=== PATIENT | male | born 1955 | race Caucasian/White ===

== ENCOUNTER 2017-01-13 13:42 | Emergency (ER) | payer OTHER ==
[2017-01-13] MEDS ORDERED: Tetan/Diph/Pertus SYR(Tdap)* 0.5 ML SYR(BOOSTRIX) use SYR IM ONE (13:52)
[2017-01-13] MEDS ORDERED: HYDROcodone/ACETAMIN 5-325 MG* 1 TAB PO ONE (14:09)
--- NOTE | 2017-01-13 14:30 | RAD ---
INDICATION: Left hand lacerations, deep. TECHNIQUE: 2 views of the left hand were obtained. FINDINGS: The exam is significantly limited. There is a prominent amount of gauze material which projects over the fingers in the region of the patient's injury. There is soft tissue swelling in the second through fifth fingers There appear to be soft tissue defects present. No fracture is seen. Incidental note is made of a small metallic density which projects lateral to the radiostyloid process. IMPRESSION: SIGNIFICANTLY LIMITED STUDY, NO EVIDENCE FOR FRACTURE, CONSIDER REPEAT IMAGING WITH THE PATIENT IS CLINICALLY ABLE.
[2017-01-13] MEDS ORDERED: LORazepam TAB(*) 1 MG PO ONE (14:42)
--- NOTE | 2017-01-13 15:16 | RAD ---
Indication: Left hand pain. 4 views of left hand demonstrates no fracture. No other bone or joint abnormalities identified. Soft tissue defect is noted in the index finger and third digit. No definite bony injury or fragments are noted. IMPRESSION: THERE APPEARS TO BE A DEEP SOFT TISSUE INJURY OF THE SECOND DIGIT AND THIRD DIGIT HOWEVER NO FRACTURE OR BONY FRAGMENTS ARE NOTED.
--- NOTE | 2017-01-13 15:28 | ED ---
Skin Complaint - HPI Summary HPI Summary: Patient presents to the ED after a skill saw accident with avulsions and lacerations to the left hand over the 2nd-4th fingers. Denies any pain. Moderate amount of blood loss. Denies numbness, tingling. He is unable to bend at the DIP or PIP joint of the fourth finger. Macerated skin to the 2nd- 4th fingers. Slightly anxious. Denies nay other symptoms or pain. Unable to assess cap refill. Pulses in wrist intact +2 bilaterally. - History of Current Complaint Chief Complaint: EDLacSutureRecheck Time Seen by Provider: 01/13/17 13:52 Stated Complaint: LT HAND FINGERS LAC/SAW Hx Obtained From: Patient Onset/Duration: Started Minutes Ago Skin Exposure Onset/Duration: Minutes Ago Timing: Constant Onset Severity: Moderate Current Severity: Moderate Pain Intensity: 7 Pain Scale Used: 0-10 Numeric Skin Location: Hand Aggravating Symptom(s): Touch Alleviating Symptom(s): Nothing Associated Signs & Symptoms: Negative Related History: Trauma - Allergy/Home Medications Allergies/Adverse Reactions: Allergies Allergy/AdvReac Type Severity Reaction Status Date / Time No Known Allergies Allergy Verified 01/13/17 13:49 PMH/Surg Hx/FS Hx/Imm Hx Previously Healthy: Yes - Immunization History Hx Pertussis Vaccination: No Immunizations Up to Date: Unable to Obtain/Confirm Infectious Disease History: No Infectious Disease History: Denies: Traveled Outside the [place] in Last 30 Days - Social History Occupation: Employed Full-time Lives: With Family Alcohol Use: None Hx Substance Use: No Substance Use Type: Reports: None Hx Tobacco Use: No Review of Systems Constitutional: Negative Eyes: Negative ENT: Negative Respiratory: Negative Gastrointestinal: Negative Genitourinary: Negative Positive: no symptoms reported, see HPI Musculoskeletal: Negative Positive: Other - macerated left 2nd, 3rd and 4th fingers Neurological: Negative All Other Systems Reviewed And Are Negative: Yes Physical Exam Triage Information Reviewed: Yes Vital Signs On Initial Exam: Initial Vitals Temp Pulse Resp BP Pulse Ox 98.0 F 74 20 198/93 98 01/13/17 13:47 01/13/17 13:47 01/13/17 13:47 01/13/17 13:47 01/13/17 13:47 Vital Signs Reviewed: Yes Appearance: Positive: Well-Appearing, Well-Nourished Skin: Positive: Warm, Skin Color Reflects Adequate Perfusion Head/Face: Positive: Normal Head/Face Inspection Eyes: Positive: EOMI, KRISTIN, Conjunctiva Clear Neck: Positive: Supple, No Lymphadenopathy Respiratory/Lung Sounds: Positive: Clear to Auscultation, Breath Sounds Present Cardiovascular: Positive: Normal, RRR, Pulses are Symmetrical in both Upper and Lower Extremities Musculoskeletal: Positive: Normal, Strength/ROM Intact Neurological: Positive: Sensory/Motor Intact, Alert, Oriented to Person Place, Time, Speech Normal Psychiatric: Positive: Normal AVPU Assessment: Alert Diagnostics - Vital Signs Vital Signs Temp Pulse Resp BP Pulse Ox 01/13/17 14:49 18 01/13/17 13:47 98.0 F 74 20 198/93 98 - Laboratory Lab Statement: Any lab studies that have been ordered have been reviewed, and results considered in the medical decision making process. Course/Dx - Course Course Of Treatment: Patient presents with macerations to the 2nd, 3rd and 4th fingers. Moderate amount of blood loss. Unable to bend the 3rd and 4th finger at the DIP and PIP joints. Called ortho. Denisse from ortho to see patient and ortho (Dr. Shea) agrees to see patient tomorrow in office. Bedside washout. Timeout obtained. Digital block with 2nd-4th fingers and washout with scrub brush. Thorough including jet irrigation. Antibiotic ointment applied. Telfa dressing applied and wrapped with gauze. Keflex prescribed. 1000mg keflex in ED. He will call tomorrow for follow up. - Diagnoses Provider Diagnoses: Laceration Discharge - Discharge Plan Condition: Stable Disposition: HOME Prescriptions: Cephalexin CAP* [Keflex CAP*] 500 mg PO QID #28 cap MDD 4 Referrals: No Primary Care Phys,NOPCP [Primary Care Provider] - Arthur Shea MD [Medical Doctor] - Additional Instructions: Follow up with Dr. Shea tomorrow! Please call for appt. I have given you information Keflex tonight 500mg before bed Tomorrow morning 500mg and continue (4 times daily) Leave bandages applied until follow up tomorrow Images - Images Hands: 1 - macerated left 2nd, 3rd and 4th fingers
[2017-01-13] MEDS ORDERED: Cephalexin CAP* 500 MG PO ONE (16:31)
[2017-01-13] MEDS ORDERED: Lidocaine 1%* 5 ML VIAL INJ ONE ×2 (16:41→16:59)
[2017-01-13 18:05] VITALS: BP 175/79
--- NOTE | 2017-01-13 22:45 | CONS ---
CONSULTATION REPORT: DATE OF CONSULT: 01/13/17 SUPERVISING PHYSICIAN: Dr. Shea (dictated by ASHA Baig) CHIEF COMPLAINT: Left hand laceration. HISTORY OF PRESENT ILLNESS: Mr. 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 today. He immediately came to the emergency room. X-rays were taken which did not show any fractures. He is here for some moderate amount of blood loss and has significant pain in the 2nd, 3rd, and 4th digits; however, he is able to bend the DIP and PIP joints of all the fingers. He denies any numbness or tingling. He denies any fevers, shakes, or chills. PAST MEDICAL HISTORY: Denies. PAST SURGICAL HISTORY: Appendectomy. CURRENT MEDICATIONS: None. ALLERGIES: AMOXICILLIN causing a rash. FAMILY HISTORY: Denies. SOCIAL HISTORY: This is a 61-year-old gentleman. Lives with his . He does not smoke tobacco. He occasionally smokes marijuana and occasional alcohol. REVIEW OF SYSTEMS: A complete 14-point review of systems was reviewed with the patient, was all negative or noncontributory. PHYSICAL EXAMINATION: General: He is well developed, well nourished, in no acute distress. He is alert and oriented x3, pleasant mood and appropriate affect. HEENT: Normocephalic, atraumatic. Neck: Supple. No palpable lymph nodes. Cardio: Regular rate and rhythm. Pulmonary: The lungs are clear to auscultation bilaterally. The abdomen is soft, nontender, and nondistended. Musculoskeletal: Left upper extremity, there is a laceration to the DIP joint of the 2nd, 3rd, and 4th fingers. The 3rd finger DIP joint is lacerated with significant amount of tissue loss. He has intact sensation over the fingers. He is able to flex at the DIP joints. He has 2+ distal radius pulses. Good capillary refill. ASSESSMENT AND PLAN: Mr. Thomas is a 61-year-old gentleman, who suffered lacerations to the DIP joints of the 2nd, 3rd, and 4th fingers. There is significant tissue loss over the DIP joint of the 3rd finger; however, he is able to flex the DIP and PIP joints of all the fingers and has intact sensation. X-rays were negative for fracture. This patient was discussed with Dr. Shea and he is agreed that a bedside I and D in the ER with Xeroform bulky dressing will be sufficient. He is also recommended Keflex and he would like to see him in his clinic tomorrow for a followup visit. ASHA BAIG [id number]/[facility] #: [id number] DELISA
== END 2017-01-13 18:09 | disposition home or self-care (01) ==
LOC: ED 13:42
DX: S61.211A Laceration without foreign body of left index finger without damage to nail, initial encounter (principal); S61.213A Laceration without foreign body of left middle finger without damage to nail, initial encounter; S61.215A Laceration without foreign body of left ring finger without damage to nail, initial encounter; W27.8XXA Contact with other nonpowered hand tool, initial encounter; Y93.89 Activity, other specified; Y92.89 Other specified places as the place of occurrence of the external cause
CPT/HCPCS: 90471; 90715; 99283; A9270-GY

== ENCOUNTER 2017-01-19 10:56 | Day surgery (SDC) | payer OTHER ==
[~2017-01-19 10:56] MED LIST: Buffered Lidocaine 0.9% SYRIN* 5 ML/SYR SYRINGE INTRADERM ONE; Famotidine IV* 10 MG/ML 2 ML (20 mg) IV ONE; Morphine INJ* 2 MG/ML 1 ML CARPUJECT IV PRN; Ondansetron INJ* 2 MG/ML VIAL IV PRN; PROCHLORPERAZINE INJ 5 MG/ML 2 ML VIAL IV PRN; Scopolamine 1.5 mg* PATCH TRANSDERM PRN; fentaNYL* 50 MCG/ML 2 ML VIAL (100 MCG VIAL) IV PRN; oxyCODONE/Acetamin 5/325 MG* TAB PO PRN
[2017-01-19] MEDS ORDERED: Famotidine IV* 10 MG/ML 2 ML (20 mg) ONE (11:31)
[2017-01-19] MEDS ORDERED: Clindamycin 900 MG IVPREMIX(* 900 MG/50 ML SDV IV ONE (11:31)
[2017-01-19] MEDS ORDERED: fentaNYL* 50 MCG/ML 2 ML VIAL (100 MCG VIAL) ONE ×2 (14:15→20:55)
[2017-01-19] MEDS ORDERED: KETAMINE HCL* 50 MG/ML 10 ML VIAL ONE (14:16)
[2017-01-19] MEDS ORDERED: Midazolam* 1 MG/ML 5 ML VIAL (5 MG) ONE (14:16)
[2017-01-19] MEDS ORDERED: Lidocaine 1% INJ* 10 MG/ML 30 ML SDV ONE (14:49)
[2017-01-19] MEDS ORDERED: Bupivacaine 0.25% SDV* 30 ML ONE (14:49)
[2017-01-19] MEDS ORDERED: Lidocaine 2% PF * 5 ML VIAL ONE (15:32)
[2017-01-19] MEDS ORDERED: Propofol* 10 MG/ML 20 ML BTL IV PUSH ONE (15:32)
[2017-01-19] MEDS ORDERED: Ondansetron INJ* 2 MG/ML VIAL ONE (15:32)
[2017-01-19] MEDS ORDERED: Dexamethasone IV* 4 MG/ML 1 ML (4 MG) ONE (15:32)
[2017-01-19] MEDS ORDERED: Morphine INJ* 10 MG/ML 1 ML CARPUJECT ONE (16:56)
[2017-01-19] MEDS ORDERED: oxyCODONE/Acetamin 5/325 MG* TAB ONE (21:59)
[2017-01-19 22:50] VITALS: BP 154/77
--- NOTE | 2017-01-20 18:21 | OP ---
OPERATIVE REPORT: DATE OF OPERATION: 01/19/17 - [facility] DATE OF : 57 SURGEON: Arthur Shea MD ASSISTANTS: 1. ASHA Cullen 2. AHSA Can 3. ASHA Bhat An speech and language assistant was needed for the entirety of the procedure to aid in positioning of the arm and retraction. ANESTHESIOLOGIST: Francisco Black MD ANESTHESIA: General. PRE-OP DIAGNOSIS: Left index, middle, and ring finger injuries due to power saw. POST-OP DIAGNOSES: 1. Left index finger flexor digitorum profundus zone 1 laceration. 2. Left index finger radial digital nerve laceration. 3. Left index finger ulnar digital nerve laceration. 4. Traumatic laceration, left volar index finger measuring 2 cm. 5. Left middle finger 50% flexor digitorum profundus partial laceration at zone 1. 6. Left middle finger ulnar digital neurovascular bundle laceration. 7. Left large traumatic wound with soft tissue loss, left ulnar and volar middle finger requiring flap closure. 8. Left ring finger full-thickness volar finger tip soft tissue loss. OPERATIVE PROCEDURE: 1. Exploration of penetrating wounds, left index, middle, and ring fingers. 2. Repair of left flexor digitorum profundus tendon. 3. Repair of left index finger radial digital nerve with primary repair. 4. Repair of left index ulnar digital nerve with conduit. 5. Closure of traumatic wound, left index finger, measuring 2 cm with primary closure. 6. Repair of left middle finger flexor digitorum profundus partial laceration. 7. Repair of left middle finger ulnar digital nerve with posterior interosseous nerve autograft. 8. Closure of traumatic wound left middle finger with rotational flap. 9. Irrigation and debridement of left ring finger tip wound with 3 mm shortening of the distal phalanx. 10. Closure of traumatic wound, left ring finger tip with V-Y Atasoy advancement flap. 11. Use of operating room microscope. INDICATIONS: Norman had a [place] injury little less than a week ago. He has been on antibiotics placed on in the office. We talked about his options, he wanted to proceed with exploration and repair and closure of the wounds if needed. He certainly understands the risks of stiffness and failure of the nerve and/or tendon repairs. ESTIMATED BLOOD LOSS: 20 mL. COMPLICATIONS: None. FINDINGS: Please see the procedures performed listed above. DESCRIPTION OF PROCEDURE: Norman was seen in the preoperative holding area. He was taken back to the operating room. The arm was prepped and draped in the usual fashion. Time-out was performed. I begun by exploring the left index finger wound. The laceration was bluntly spread open with tenotomy scissors. It was obvious that the FDP was lacerated off its insertion on to the distal phalanx. I went ahead and brought the skin incision back in Logan-type fashion over the volar aspect of the finger and found the FDP tendon, which was palpable right at the decussation of the FDS. I made a transverse incision through the A3 hattie and delivered the end of the FDP out into the wound. A 3-0 Prolene pull-out suture was placed. I went ahead and used a 0 Prolene suture to suture shuttle the 2 tails of the 3-0 Prolene suture into the distal aspect of the sheath. The FDP tendon was delivered inside the sheath out distally to where it inserts. I went ahead and used 2 Gonzalez needles to pull one tail of the pull-out suture around the radial and the other tail around the ulnar side of the distal phalanx. The sutures were brought out through the sterile matrix. The sutures were tied off over a button that I fabricated out of the Prolene suture wrapper. I then augmented the tendon repair with 3 figure-of-8 3-0 Ethibond sutures as there was a bit of distal tendon stump still remaining and so I augmented repair with Ethibond sutures. I then identified the radial and ulnar digital nerves. Actually, the digital nerves were both completely cut but the soft tissue shy of both digital arteries and so as that was why the finger tip was so well perfused. After I had identified both of the digital nerves, I went ahead and moved on to the middle finger. The left middle finger wound was explored. There was a 1-cm volar ulnar soft tissue loss just proximal and extending to the level of the DIP flexion crease. This went all the way down to bone, 50% of the FDP tendon was lacerated obliquely and was a bit shredded. I did take one 3-0 Prolene suture and repaired the site that was lacerated with a 4-strand cruciate type core suture. I then found both ends of my digital nerve and prepared them and set them aside for repair later. I then turned my attention to the ring finger. The epidermis over the entirety of the finger tip was gone; however, there was some good pulp remaining proximally and distally, over an area of about 7 cm, there was complete loss of the pulp right down to the bone. I thought about this for a bit and then ultimately, I decided to get soft tissue coverage over the bone by advancing the proximal pulp that remained in V-Y type fashion and by shortening the distal phalanx by 3 mm distally. I went ahead and raised my flap for my Atasoy flap in V-Y fashion preserving the radial and ulnar neurovascular bundles to perfuse the flap. This was then released off the periosteum deeply. I advanced the flap. I then realized I was going to have to shorten the distal phalanx just a bit, so I released the soft tissue off the distal aspect of the distal phalanx and then used a bone cutter to remove about 3 mm. With the length that I obtained from that, I was able to close the wound with multiple 4- 0 nylon sutures. This was closed up again in V-Y type fashion. This achieved good soft tissue coverage and I got some good beefy red tissue over the entirety of the finger tip. At this point, we were at 2 hours on the tourniquet and so I went ahead and dropped the tourniquet. I had exsanguinated the arm and inflated the tourniquet to 250 mmHg prior to making skin incision. During the tourniquet holiday of 20 minutes, I went ahead and continued to prepare my digital nerve and got everything ready for repair. Please note that prior to dropping the tourniquet, I had gone dorsally and made a 4-cm incision just ulnar to Alexis's tubercle. I gone down and released the fascia in the proximal aspect of the extensor retinaculum. I had located the posterior interosseous nerve in the radial aspect of the floor of the fourth dorsal compartment. It was small, but it looked like it would be a decent size match for my very distal digital nerve injury, so I harvested a 3 cm piece of the posterior interosseous nerve. After we waited 20 minutes for tourniquet holiday, I went ahead and examined the arm and placed the Esmarch to 250 mmHg. We had brought the microscope in. Under the microscope, I went ahead and cleaned off my digital nerves. I started in the middle finger. I went ahead and debrided them back to healthy edges. Ultimately, I had a gap of about 15 mm. I decided to use my posterior interosseous nerve autograft, so I brought that in and first secured it distally with two 10-0 nylon sutures. I then got the appropriate size and trimmed my graft and then sutured approximately in similar fashion with two 10- 0 nylon sutures. I then turned my attention to the index finger. We repositioned the microscope. I trimmed back my edges and on the ulnar digital nerve, there was a gap of just about 1 cm. I decided to use 2 mm x 10 mm Avance conduit. This was placed and sutured in place in standard fashion, first with a mattress suture distally and then the proximal aspect of the nerve was docked into the conduit with another mattress suture proximally. I then turned my attention to the radial digital nerve. Actually with bit of flexion we had gotten with the flexor tendon repair, able to get the tendon edges opposed. I therefore sutured the digital nerve together with a 10-0 nylon suture. At this point, I began to close my traumatic lacerations. All the wounds were irrigated out copiously. I went ahead and closed first the index finger, which was a transverse 2-cm laceration. I was able to debride the skin and subcutaneous tissue and they were looking nice and I was able to close the traumatic wound with some 4-0 nylon suture. I then turned my attention to the middle finger. There was a 7 x 8 mm soft tissue defect on the volar ulnar aspect of the finger right over the area where I grafted the nerve. There was exposed tendon in the base of the wound. I contemplated doing a cross-finger flap from the ring finger that was little bit in good length; however, I thought that I could get it closed with rotational flap, so I made an incision along the ulnar mid axial line down to the PIP flexion crease and then brought this back obliquely across the proximal phalanx. I flaps just a little bit proximally. I was able to rotate that down and get the wound closed. The closure was secured with multiple 4-0 nylon sutures. At this point, I had closed all the traumatic wounds. Again, the middle finger had required the rotational flap and then the ring finger required the V-Y advancement flap shortening of the bone. The index finger did close up primarily. With all the wounds closed, the fingers were in beautiful cascade with the index finger just little bit more flexed than the middle and ring fingers. The tourniquet was deflated. All the flaps pinked up and were bleeding nicely. Digital blocks were performed with 0.25% plain Marcaine. Wounds were dressed with Xeroform, 4x4's, Kerlix, sterile Webril, and then a dorsal blocking splint was placed at the wrist in slight neutral flexion and the MP joint maximally flexed. He was then woken up and taken to the recovery room in stable condition. [id number]/[facility] #: [id number] DELISA
[2017-01-22] MEDS ORDERED: Scopolomine PATCH Remove* 1 NOTE MISC PATCH OFF ONE (06:09)
== END 2017-01-19 23:02 | disposition home or self-care (01) ==
LOC: OR 10:56
PROVIDERS: ATTEND Orthopaedic Surgery Hand Surgery
DX: S61.211A Laceration without foreign body of left index finger without damage to nail, initial encounter (principal); S66.121A Laceration of flexor muscle, fascia and tendon of left index finger at wrist and hand level, initial encounter; S64.491A Injury of digital nerve of left index finger, initial encounter; S66.123A Laceration of flexor muscle, fascia and tendon of left middle finger at wrist and hand level, initial encounter; S64.493A Injury of digital nerve of left middle finger, initial encounter; S61.213A Laceration without foreign body of left middle finger without damage to nail, initial encounter; S61.215A Laceration without foreign body of left ring finger without damage to nail, initial encounter; W31.2XXA Contact with powered woodworking and forming machines, initial encounter; Y92.89 Other specified places as the place of occurrence of the external cause; Z88.1 Allergy status to other antibiotic agents
CPT/HCPCS: A9270-GY; C1777; J1100; J2001; J2250; J2270; J2405; J2704; J3010